=== PATIENT | female | born 1990 | race Caucasian/White ===

== ENCOUNTER 2018-08-16 13:06 | Emergency (ER) | payer BC ==
[2018-08-16] MEDS ORDERED: OXYCODONE-ACETAMINOPHEN 5-325 MG TABLET PO ONE (14:06)
[2018-08-16] MEDS ORDERED: LIDOCAINE 5% (700 MG) TRANSDERMAL ADH..PATCH TP ONE (14:06)
--- NOTE | 2018-08-16 14:20 | ER Document Report ---
HPI - HPI Patient complains to provider of: Right knee injury Time Seen by Provider: 08/16/18 13:50 Onset: Yesterday Onset/Duration: Persistent Quality of pain: Sharp Pain Level: 4 Context: P patient reports a history of sciatica and complains of a flareup of her low back pain that radiates to the left lower extremity. 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 States that she has had an MRI done in May of this year that did not find any acute problem. Patient states that typically her sciatica only goes down to the level of her knee but today it seems to be going down to her foot. Patient denies any new injury or fever. Patient states she was seen at an urgent care yesterday and given a prescription for Toradol and steroids but this is not helping her pain symptoms. Exacerbated by: Standing, Movement, Walking Relieved by: Denies Similar symptoms previously: Yes Recently seen / treated by doctor: Yes - ROS ROS below otherwise negative: Yes Systems Reviewed and Negative: Yes All other systems reviewed and negative - CONSTITUTIONAL Constitutional: DENIES: Fever, Chills - GASTROINTESTINAL Gastrointestinal: DENIES: Nausea - REPRODUCTIVE Reproductive: DENIES: : - MUSCULOSKELETAL Musculoskeletal: REPORTS: Extremity pain - radiation down left leg, Back Pain - DERM Skin Color: Normal Skin Problems: None Past Medical History - General Information source: Patient - Social History Smoking Status: Current Every Day Smoker Smoking Education Provided: Yes Frequency of alcohol use: Occasional Drug Abuse: None Occupation: EMS Family History: Reviewed & Not Pertinent Patient has suicidal ideation: No Patient has homicidal ideation: No Renal/ Medical History: Denies: Hx Peritoneal Dialysis Musculoskeletal Medical History: Denies Hx Arthritis, Reports Other - Sciatica Past Surgical History: Reports: Other - Cyst removal. Denies: Hx Hysterectomy - Immunizations Hx Diphtheria, Pertussis, Tetanus Vaccination: Yes Vertical Provider Document - CONSTITUTIONAL Agree With Documented VS: Yes Exam Limitations: No Limitations General Appearance: WD/WN, Mild Distress Notes: PHYSICAL EXAMINATION: GENERAL: Well-appearing, well-nourished and in no acute distress. HEAD: Atraumatic, normocephalic. EYES: sclera clear, anicteric, conjunctiva are normal. ENT: nares patent, Moist mucous membranes. NECK: Normal range of motion, supple no lymphadenopathy LUNGS: respirations unlabored HEART: Regular rate and rhythm without murmurs EXTREMITIES: Normal range of motion, no pitting or edema. No cyanosis. Gait normal, pt ambulates without difficulty BACK: Left lumbar paraspinal tenderness, left SI joint tenderness, no midline tenderness, no deformities or step-offs. No CVA tenderness. NEUROLOGICAL: Cranial nerves grossly intact. Normal speech, normal gait. No saddle anesthesia. 2+ bilateral patellar and Achilles reflexes, positive straight leg test on the left PSYCH: Normal mood, normal affect. SKIN: Warm, Dry, normal turgor, no rashes or lesions noted. - INFECTION CONTROL TRAVEL OUTSIDE OF THE [place] IN LAST 30 DAYS: No Course - Re-evaluation Re-evalutation: 08/16/18 14:17 The patient presents with low back pain without signs of spinal cord compression , cauda equina syndrome, infection, aneurysm, or other serious etiology. The patient is neurologically intact. Given the extremely risk of these diagnoses further testing and evaluation for these possibilities does not appear to be indicated at this time. Patient has been instructed to return if the symptoms worsen or change in any way. - Vital Signs Vital signs: Temp Pulse Resp BP Pulse Ox 98.4 F 84 20 135/74 H 100 08/16/18 13:08 08/16/18 13:08 08/16/18 13:08 08/16/18 13:08 08/16/18 13:08 Discharge - Discharge Clinical Impression: Sciatica Qualifiers: Laterality: left Qualified Code(s): M54.32 - Sciatica, left side Condition: Stable Disposition: HOME, SELF-CARE Instructions: Sciatica ([facility]) Additional Instructions: Return immediately for any new or worsening symptoms Followup with your primary care provider, call tomorrow to make a followup appointment LOW BACK PAIN: Three out of every four people will have an episode of disabling back pain during their lifetime. Most commonly the pain is due to straining of the muscles and ligaments in the low back. Usual treatment includes: (1) Rest on a firm surface. Avoid lying on your stomach. (2) Ice pack the painful area. After a few days, gentle heat may be used intermittently to relax the area, or ice packs can be continued. (3) Medication may be needed -- muscle relaxers and antiinflammatory medicines are commonly used. (4) As the back improves, exercises are prescribed to strengthen the back and abdominal muscles. Your doctor will advise you on the proper care for your back at each stage in your recovery. You may be better in a few days -- or healing may take several weeks. If new symptoms of a "herniated disc" (radiation of pain, numbness, or tingling down the back of the leg or weakness in the leg) occur, you should be re-examined. Further testing may be necessary. ORAL NARCOTIC MEDICATION: You have been given a prescription for pain control. This medication is a narcotic. It's best taken with food, as nausea can result if taken on an empty stomach. Don't operate machinery or drive within six hours of taking this medication. Do not combine this medicine with alcohol, or with any medication which can cause sedation (such as cold tablets or sleeping pills) unless you get permission from the physician. Narcotics tend to cause constipation. If possible, drink plenty of fluids and eat a diet high in fiber and fruits. Please be aware that prescription narcotics also have the potential for abuse. People become addicted to these medications because of the general sense of wellbeing that they induce. This feeling along with a significant reduction in tension, anxiety, and aggression provides a stimulating seductive quality to these drugs. Once your pain is under control, we encourage you to discard your unused narcotics. ICE PACKS: Apply ice packs frequently against the painful area. Many different schedules are recommended, such as "20 minutes on, 20 minutes off" or "one hour ice, two hours rest." If you need to work, you may need to go longer between ice treatments. You should plan to have the area ice packed AT LEAST one fourth of the time. The ice should be applied over the wrap, tape, or splint, or over a layer of cloth -- not directly against the skin. Some ice bags have a built-in cloth and can be put directly on the skin. FOLLOW-UP CARE: If you have been referred to a physician for follow-up care, call the physician s office for an appointment as you were instructed or within the next two days. If you experience worsening or a significant change in your symptoms, notify the physician immediately or return to the Emergency Department at any time for re-evaluation. Prescriptions: Oxycodone HCl/Acetaminophen [Percocet 5-325 mg Tablet] 1 tab PO ASDIR PRN #15 tablet PRN Reason: Forms: Smoking Cessation Education, Return to Work Referrals: MAR SALGADO PA-C [Primary Care Provider] - 08/17/18
[2018-08-16 14:55] VITALS: BP 115/74
== END 2018-08-16 14:53 | disposition home or self-care (01) ==
LOC: ER 13:06
DX: M54.32 Sciatica, left side (principal); M54.5 Low back pain; M79.605 Pain in left leg; X58.XXXA Exposure to other specified factors, initial encounter; F17.200 Nicotine dependence, unspecified, uncomplicated
CPT/HCPCS: 99283

== ENCOUNTER 2018-08-24 09:40 | Emergency (ER) | payer OTHER, BC ==
[2018-08-24 09:53] VITALS: BP 127/78
[2018-08-24] MEDS ORDERED: DIAZEPAM INJ 10 MG/2 ML DISP.SYRIN IM ONE (11:20)
[2018-08-24] MEDS ORDERED: KETOROLAC TROMETHAMINE 60 MG/2 ML SDV IM ONE (11:20)
--- NOTE | 2018-08-24 11:32 | ER Document Report ---
HPI - HPI Time Seen by Provider: 08/24/18 10:45 Onset: Last week Pain Level: 5 Similar symptoms previously: Yes Recently seen / treated by doctor: Yes Notes: Patient is an otherwise healthy 27-year-old female who presents with chief complaints of low back pain and left leg pain. Patient has been seen here and at her primary care provider multiple times for this. Patient has already tried taking the following medications without relief, Mobic, Flexeril, Toradol , prednisone, Percocet and gabapentin. These medications have been prescribed either from primary care or ED providers. She reports that the pain is worsening and she now has pain to the left lumbar paraspinous area with radiation down the left buttock down to her posterior knee. She also has numbness and tingling from her left foot up to her left thigh. She denies any bowel incontinence but does report that she has had a reduced urge to urinate. She denies any fever. - REPRODUCTIVE Reproductive: DENIES: : Past Medical History - General Information source: Patient - Social History Smoking Status: Current Every Day Smoker Frequency of alcohol use: None Drug Abuse: None Family History: Reviewed & Not Pertinent - Past Medical History Cardiac Medical History: Denies: Hx Coronary Artery Disease, Hx Heart Attack, Hx Hypertension Pulmonary Medical History: Reports: Hx Asthma - as a child Denies: Hx Bronchitis, Hx COPD, Hx Pneumonia Neurological Medical History: Denies: Hx Cerebrovascular Accident, Hx Seizures Renal/ Medical History: Denies: Hx Peritoneal Dialysis Musculoskeletal Medical History: Denies Hx Arthritis Past Surgical History: Reports: Hx Section, Hx Tubal Ligation, Other - Cyst removal. Denies: Hx Hysterectomy - Immunizations Hx Diphtheria, Pertussis, Tetanus Vaccination: Yes Vertical Provider Document - CONSTITUTIONAL Notes: PHYSICAL EXAMINATION: GENERAL: Well-appearing, well-nourished and in no acute distress. HEAD: Atraumatic, normocephalic. EYES: Pupils equal round and reactive to light, extraocular movements intact, conjunctiva are normal. ENT: Nares patent, oropharynx clear without exudates. Moist mucous membranes. NECK: Normal range of motion, supple without lymphadenopathy LUNGS: Breath sounds clear to auscultation bilaterally and equal. No wheezes rales or rhonchi. HEART: Regular rate and rhythm without murmurs ABDOMEN: Soft, nontender, nondistended abdomen. No guarding, no rebound. No masses appreciated. Female : No CVA tenderness. Musculoskeletal: Normal range of motion, no pitting or edema. No cyanosis. Positive straight leg raises at approximately 30 degrees. Tenderness to palpation to left lumbar paraspinous muscles. NEUROLOGICAL: Cranial nerves grossly intact. Normal speech. Normal sensory, motor exams. Altered sensation to posterior left leg from the foot up to the thigh. PSYCH: Normal mood, normal affect. SKIN: Warm, Dry, normal turgor, no rashes or lesions noted. - INFECTION CONTROL TRAVEL OUTSIDE OF THE [place] IN LAST 30 DAYS: No Course - Re-evaluation Re-evalutation: Urinalysis is unremarkable has no indication of infection. MRI of the lumbar spine order was placed as patient does have progressive neurological symptoms concerning for cord compression. 08/24/18 14:59 Patient reports minimal improvement of pain after administration of IM toradol and IM valium. MRI of the lumber spine reveals a sizeable inferiorly extending disc extrusion at L5-S1 with impingement on the left S1 nerve root. 08/24/18 15:10 Findings were discussed with the patient, I will discharge patient home with a prescription for Valium. She already has appropriate pain medications at home. She will follow-up with her Workmen's Comp. doctor Sunday morning so that the she can get an appropriate referral to neurosurgery. Patient is agreeable to this plan of care. - Vital Signs Vital signs: Temp Pulse Resp BP Pulse Ox 98.4 F 89 16 127/78 H 98 08/24/18 09:50 08/24/18 09:50 08/24/18 09:50 08/24/18 09:50 08/24/18 09:50 Discharge - Discharge Clinical Impression: Extrusion of intervertebral disc Back pain Qualifiers: Back pain location: low back pain Chronicity: acute Back pain laterality: unspecified Sciatica presence: with sciatica Sciatica laterality: sciatica of left side Qualified Code(s): M54.42 - Lumbago with sciatica, left side Condition: Stable Disposition: HOME, SELF-CARE Additional Instructions: I have enclosed a copy of your MRI report. Please do not return to work until cleared by the neurosurgeon. Please call your human resources department first thing Sunday morning to get your Workmen's Comp. appointments expedited. It is imperative that you are seen by a neurosurgeon due to the findings on your MRI. You have a disc extrusion at L5-S1 with impingement on the left S1 nerve root. This is what is causing your pain. Continue to take medications as prescribed by your primary provider, stop taking the Flexeril and start taking Valium as prescribed. You are also given a shot of IM Decadron while in the emergency department today, this will last for 3 days. I have also attached the number of a house painter, Dr. Sy who may be able to help with some of your symptoms. Return to the emergency department immediately if you develop worsening symptoms, bowel incontinence, you are unable to urinate or you have worsening numbness or tingling to your legs. Prescriptions: Diazepam [Valium 5 mg Tablet] 5 mg PO QIDP PRN #20 tablet PRN Reason: Muscle Spasms Forms: Return to Work Referrals: MAR SALGADO PA-C [Primary Care Provider] - Follow up as needed JENNIFER SY MD [ACTIVE STAFF] - Follow up as needed
[2018-08-24 12:04] LABS: APPEARANCE,URINE SLIGHTLY-CLOUDY; BILIRUBIN,URINE NEGATIVE (NEGATIVE); COLOR,URINE YELLOW; GLUCOSE, URINE NEGATIVE (NEGATIVE); KETONES,URINE NEGATIVE (NEGATIVE); LEUKOCYTE ESTERASE,URINE NEGATIVE (NEGATIVE); NITRITE,URINE NEGATIVE (NEGATIVE); PROTEIN,URINE NEGATIVE (NEGATIVE); URINE SPECIFIC GRAVITY 1.006; UROBILINOGEN,URINE NEGATIVE mg/dL (<2.0)
--- NOTE | 2018-08-24 13:58 | RADIOLOGY REPORT (SQ) ---
EXAM DESCRIPTION: MRI LUMBAR SPINE WITHOUT COMPLETED DATE/TIME: 08/24/2018 1:49 pm REASON FOR STUDY: Back pain, numbness in LLE, decreased urge to urin COMPARISON: None. TECHNIQUE: Sagittal and Axial imaging includes T1, T2, STIR and gradient echo sequences. Coronal T2/ HASTE imaging. LIMITATIONS: None. FINDINGS: VISUALIZED UPPER ABDOMEN: Limited evaluation. No acute or suspicious findings suggested. SEGMENTATION: No transitional anatomy. The lowest well-developed disc space is labeled L5-S1. ALIGNMENT: Slight scoliosis. VERTEBRAE: Intact. BONE MARROW: Mild endplate edema at L5-S1. DISC SIGNAL: Diminished disc signal at L4-5 and L5-S1. POSTERIOR ELEMENTS: Generally intact. No pars defect evident. HARDWARE: None in the spine. CORD AND CONUS: Normal in size and signal intensity. Conus at the appropriate level. SOFT TISSUES: No aortic aneurysm seen. No bulky retroperitoneal adenopathy or mass. No paraspinal mas s or fluid. L1-L2: No significant spinal stenosis or exit foraminal stenosis. L2-L3: No significant spinal stenosis or exit foraminal stenosis. L3-L4: No significant spinal stenosis or exit foraminal stenosis. L4-L5: Minimal central protrusion slightly indenting the ventral thecal sac without mass effect on th e nerve roots. L5-S1: Broad central to left paracentral focal disc hernia with an inferiorly extending portion exert ing marked mass effect on the proximal left S1 nerve root. Mild left foraminal narrowing. LOWER THORACIC: Incompletely imaged. No stenosis seen. SACRUM: Visualized upper sacrum intact. OTHER: No other significant findings. IMPRESSION: 1. Sizable inferiorly extending disc extrusion at L5-S1. There is impingement on the le ft S1 nerve root. TECHNICAL DOCUMENTATION: JOB ID: [id number] [employer]- All Rights Reserved Reading location - IP/workstation name: [email or web address]
[2018-08-24] MEDS ORDERED: DEXAMETHASONE SOD PHOS INJ 10 MG/1 ML VIAL IM ONE (15:09)
== END 2018-08-24 15:43 | disposition home or self-care (01) ==
LOC: ER 09:40
DX: M51.27 Other intervertebral disc displacement, lumbosacral region (principal); M54.42 Lumbago with sciatica, left side; M79.605 Pain in left leg; Z79.899 Other long term (current) drug therapy; M25.562 Pain in left knee; M79.672 Pain in left foot; M25.552 Pain in left hip; F17.200 Nicotine dependence, unspecified, uncomplicated; J45.909 Unspecified asthma, uncomplicated
CPT/HCPCS: 99284; 96372; 81025; 81001; 72148; J3360; J1885; J1100

== ENCOUNTER 2019-11-15 13:55 | Emergency (ER) | payer BC ==
[2019-11-15] MEDS ORDERED: ONDANSETRON HCL INJ/PF 4 MG/2 ML SDV IV ONE (14:16)
[2019-11-15] MEDS ORDERED: KETOROLAC TROMETHAMINE INJ/PF 30 MG/1 ML SDV IV ONE (14:16)
--- NOTE | 2019-11-15 14:17 | ER Document Report ---
ED Medical Screen (RME) - General Chief Complaint: Flank Pain Stated Complaint: LOWER ABDOMINAL/BACK/BLADDER PAIN Time Seen by Provider: 11/15/19 14:13 Primary Care Provider: MAR SALGADO PA-C [Primary Care Provider] - Follow up as needed Notes: HPI: 29-year-old female who is otherwise healthy but does have a history of 1 kidney stone previously 3 or 4 years ago which she was able to pass presenting to the emergency department complaining of left flank pain with nausea vomiting, patient had some frequency of urination last night but did not have the flank pain which began this morning. States pain seems to radiate from the left back down into the left lower quadrant region. Pain does not change with position or movement I have greeted and performed a rapid initial assessment of this patient. A comprehensive ED assessment and evaluation of the patient, analysis of test results and completion of the medical decision making process will be conducted by additional ED providers PHYSICAL EXAMINATION: GENERAL: Well-appearing, well-nourished and in moderate acute distress. HEAD: Atraumatic, normocephalic. EYES: sclera anicteric, conjunctiva are normal. ENT: Moist mucous membranes. NECK: Normal range of motion LUNGS: Normal work of breathing, clear to auscultation HEART: 2+ radial pulses bilaterally, regular rate and rhythm ABD: limited by positioning for exam in triage. Mild left CVA tenderness, mild left flank pain on palpation EXTREMITIES: no pitting or edema. No cyanosis. NEUROLOGICAL: No focal neurological deficits. Moves all extremities spontaneously and on command. PSYCH: Normal mood, normal affect. SKIN: Warm, Dry, normal turgor, no rashes or lesions noted. TRAVEL OUTSIDE OF THE [place] IN LAST 30 DAYS: No - Related Data Allergies/Adverse Reactions: Sulfa (Sulfonamide Antibiotics) Allergy (Verified 11/15/19 14:12) Home Medications: control pill Past Medical History - Social History Chew tobacco use (# tins/day): No Frequency of alcohol use: None Drug Abuse: None - Past Medical History Cardiac Medical History: Denies: Hx Coronary Artery Disease, Hx Heart Attack, Hx Hypertension Pulmonary Medical History: Reports: Hx Asthma - as a child Denies: Hx Bronchitis, Hx COPD, Hx Pneumonia Neurological Medical History: Denies: Hx Cerebrovascular Accident, Hx Seizures Renal/ Medical History: Denies: Hx Peritoneal Dialysis Musculoskeltal Medical History: Denies Hx Arthritis Past Surgical History: Reports: Hx Section, Hx Tubal Ligation, Other - Cyst removal. Denies: Hx Hysterectomy - Immunizations Hx Diphtheria, Pertussis, Tetanus Vaccination: Yes Physical Exam - Vital signs Vitals: Temp Pulse Resp BP Pulse Ox 97.9 F 72 20 127/77 H 100 11/15/19 14:11 11/15/19 14:11 11/15/19 14:11 11/15/19 14:11 11/15/19 14:11 Course - Vital Signs Vital signs: Temp Pulse Resp BP Pulse Ox 97.9 F 72 20 127/77 H 100 11/15/19 14:11 11/15/19 14:11 11/15/19 14:11 11/15/19 14:11 11/15/19 14:11 Doctor's Discharge - Discharge Referrals: MAR SALGADO PA-C [Primary Care Provider] - Follow up as needed
[2019-11-15 15:06] LABS: APPEARANCE,URINE CLOUDY; BILIRUBIN,URINE NEGATIVE (NEGATIVE); COLOR,URINE YELLOW; GLUCOSE, URINE NEGATIVE (NEGATIVE); KETONES,URINE NEGATIVE (NEGATIVE); LEUKOCYTE ESTERASE,URINE NEGATIVE (NEGATIVE); NITRITE,URINE NEGATIVE (NEGATIVE); PROTEIN,URINE 30 mg/dL (NEGATIVE); URINE SPECIFIC GRAVITY 1.026; UROBILINOGEN,URINE NEGATIVE mg/dL (<2.0)
[2019-11-15 15:06] LABS: ABSOLUTE EOSINOPHILS # (AUTO) 0.2 10^3/uL (0.0-0.6); ABSOLUTE LYMPHOCYTES (AUTO) 1.1 10^3/uL (0.5-4.7); ABSOLUTE MONOCYTES (AUTO) 0.4 10^3/uL (0.1-1.4); ABSOLUTE NEUT (AUTO) 3.5 10^3/uL (1.7-8.2); BASOPHILS % (AUTO) 0.3 % (0-2); EOSINOPHILS % (AUTO) 3.1 % (0-6); HEMATOCRIT 41.8 % (36.0-47.0); HEMOGLOBIN 14.7 g/dL (12.0-15.5); LYMPHOCYTES % (AUTO) 20.8 % (13-45); MEAN CORPUSCULAR HEMOGLOBIN 29.9 pg (27.0-33.4); MEAN CORPUSCULAR HGB CONC 35.1 g/dL (32.0-36.0); MEAN CORPUSCULAR VOLUME 85 fl (80-97); MONOCYTES % (AUTO) 8.2 % (3-13); PLATELET COUNT 245 10^3/uL (150-450); RED BLOOD COUNT 4.91 10^6/uL (3.72-5.28); RED CELL DISTRIBUTION WIDTH 13.3 % (11.5-14.0); SEGMENTED NEUTROPHILS % (AUTO) 67.6 % (42-78); TOTAL CELLS COUNTED % (AUTO) 100 %; WHITE BLOOD COUNT 5.2 10^3/uL (4.0-10.5)
[2019-11-15 15:24] LABS: ANION GAP 7 (5-19); BLOOD UREA NITROGEN 9 mg/dL (7-20); CALCIUM 9.2 mg/dL (8.4-10.2); CARBON DIOXIDE 23 mmol/L (22-30); CHLORIDE 108 mmol/L (98-107); GLUCOSE 89 mg/dL (75-110); POTASSIUM 4.3 mmol/L (3.6-5.0)
--- NOTE | 2019-11-15 15:30 | RADIOLOGY REPORT (SQ) ---
EXAM DESCRIPTION: CT ABD/PELVIS NO ORAL OR IV COMPLETED DATE/TIME: 11/15/2019 2:07 pm REASON FOR STUDY: left flank pain kidney stone susp COMPARISON: 08/23/2014. TECHNIQUE: CT scan of the abdomen and pelvis performed without intravenous or oral contrast. Images reviewed with lung, soft tissue, and bone windows. Reconstructed coronal and sagittal MPR images revi ewed. All images stored on PACS. All CT scanners at this facility use dose modulation, iterative reconstruction, and/or weight based d osing when appropriate to reduce radiation dose to as low as reasonably achievable (ALARA). [facility]: Dose Right [facility]: CareDose [facility]: Dose Right [facility]: Teradose 4D [facility]: Smart IQ Engines RADIATION DOSE: CT Rad equipment meets quality standard of care and radiation dose reduction techniq ues were employed. CTDIvol: 7.7 mGy. DLP: 443 mGy-cm.mGy. LIMITATIONS: None. FINDINGS: LOWER CHEST: No significant findings. No nodules or infiltrates. NON-CONTRASTED LIVER, SPLEEN, ADRENALS: Evaluation limited by lack of IV contrast. No identified sign ificant masses. PANCREAS: No masses. No peripancreatic inflammatory changes. GALLBLADDER: No identified stones by CT criteria. No inflammatory changes to suggest cholecystitis. RIGHT KIDNEY AND URETER: No suspicious masses. Assessment limited by lack of IV contrast. A few pun ctate nonobstructing right renal calculi. No hydronephrosis or hydroureter. LEFT KIDNEY AND URETER: No suspicious masses. Assessment limited by lack of IV contrast. There are a few punctate nonobstructing renal calculi. There is a 6 mm distal right ureteral calculus at the u reterovesical junction, with moderate right hydronephrosis and hydroureter. AORTA AND RETROPERITONEUM: No aneurysm. No retroperitoneal masses or adenopathy. BOWEL AND PERITONEAL CAVITY: No obvious masses or inflammatory changes. No free fluid. APPENDIX: Normal. PELVIS, BLADDER, AND ABDOMINAL WALL:Uterus and ovaries have normal size. No adnexal mass. Urinary b ladder is decompressed. No abdominal wall mass or hernia. BONES: No significant findings. OTHER: No other significant finding. IMPRESSION: 1. Obstructing 6 mm distal left ureteral calculus at the ureterovesical junction. Resulting moderate left hydronephrosis and hydroureter. 2. Additional punctate bilateral nonobstructing renal calculi. COMMENT: Quality ID # [id number]: Final reports with documentation of one or more dose reduction techniques (e.g., Automated exposure control, adjustment of the mA and/or kV according to patient size, use of iterative reconstruction technique) TECHNICAL DOCUMENTATION: JOB ID: [id number] [employer]- All Rights Reserved Reading location - IP/workstation name: [email or web address]
[2019-11-15] MEDS ORDERED: NORMAL SALINE 1000 ML 1,000 ML IV ONE (16:09)
[2019-11-15] MEDS ORDERED: TAMSULOSIN HCL 0.4 MG CAP.SR.24H PO ONE (16:09)
--- NOTE | 2019-11-15 16:27 | ER Document Report ---
ED GI/ - General Chief Complaint: Flank Pain Stated Complaint: LOWER ABDOMINAL/BACK/BLADDER PAIN Time Seen by Provider: 11/15/19 14:13 Primary Care Provider: LUTHER NAPOLES MD [NO LOCAL MD] - Follow up as needed Mode of Arrival: Ambulatory Information source: Patient Notes: BERNARDO HPI: 29-year-old female who is otherwise healthy but does have a history of 1 kidney stone previously 3 or 4 years ago which she was able to pass presenting to the emergency department complaining of left flank pain with nausea vomiting, patient had some frequency of urination last night but did not have the flank pain which began this morning. States pain seems to radiate from the left back down into the left lower quadrant region. Pain does not change with position or movement TRAVEL OUTSIDE OF THE [place] IN LAST 30 DAYS: No - Related Data Allergies/Adverse Reactions: Sulfa (Sulfonamide Antibiotics) Allergy (Verified 11/15/19 14:12) Home Medications: control pill Past Medical History - General Information source: Patient - Social History Smoking Status: Never Smoker Chew tobacco use (# tins/day): No Frequency of alcohol use: None Drug Abuse: None Family History: Reviewed & Not Pertinent Patient has suicidal ideation: No Patient has homicidal ideation: No - Past Medical History Cardiac Medical History: Denies: Hx Coronary Artery Disease, Hx Heart Attack, Hx Hypertension Pulmonary Medical History: Reports: Hx Asthma - as a child Denies: Hx Bronchitis, Hx COPD, Hx Pneumonia Neurological Medical History: Denies: Hx Cerebrovascular Accident, Hx Seizures Renal/ Medical History: Reports: Hx Kidney Stones. Denies: Hx Peritoneal Dialysis Musculoskeletal Medical History: Denies Hx Arthritis Past Surgical History: Reports: Hx Section, Hx Tubal Ligation, Other - Cyst removal. Denies: Hx Hysterectomy - Immunizations Hx Diphtheria, Pertussis, Tetanus Vaccination: Yes Review of Systems - Review of Systems Constitutional: No symptoms reported EENT: No symptoms reported Cardiovascular: No symptoms reported Respiratory: No symptoms reported Gastrointestinal: No symptoms reported Genitourinary: Flank pain Female Genitourinary: No symptoms reported Musculoskeletal: No symptoms reported Skin: No symptoms reported Hematologic/Lymphatic: No symptoms reported Neurological/Psychological: No symptoms reported Physical Exam - Vital signs Vitals: Temp Pulse Resp BP Pulse Ox 97.9 F 72 20 127/77 H 100 11/15/19 14:11 11/15/19 14:11 11/15/19 14:11 11/15/19 14:11 11/15/19 14:11 - Notes Notes: PHYSICAL EXAMINATION: GENERAL: Well-appearing, well-nourished and in no acute distress. HEAD: Atraumatic, normocephalic. EYES: Pupils equal round and reactive to light, extraocular movements intact, conjunctiva are normal. ENT: Nares patent, oropharynx clear without exudates. Moist mucous membranes. NECK: Normal range of motion, supple without lymphadenopathy LUNGS: Breath sounds clear to auscultation bilaterally and equal. No wheezes rales or rhonchi. HEART: Regular rate and rhythm without murmurs ABDOMEN: Soft, nontender, nondistended abdomen. No guarding, no rebound. No masses appreciated. Female : No CVA tenderness Musculoskeletal: Normal range of motion, no pitting or edema. No cyanosis. NEUROLOGICAL: Cranial nerves grossly intact. Normal speech, normal gait. Normal sensory, motor exams PSYCH: Normal mood, normal affect. SKIN: Warm, Dry, normal turgor, no rashes or lesions noted. Course - Re-evaluation Re-evalutation: Laboratory 11/15/19 11/15/19 11/15/19 14:25 14:53 14:53 WBC 5.2 RBC 4.91 Hgb 14.7 Hct 41.8 MCV 85 MCH 29.9 MCHC 35.1 RDW 13.3 Plt Count 245 Lymph % (Auto) 20.8 Upson % (Auto) 8.2 Eos % (Auto) 3.1 Baso % (Auto) 0.3 Absolute Neuts (auto) 3.5 Absolute Lymphs (auto) 1.1 Absolute Monos (auto) 0.4 Absolute Eos (auto) 0.2 Absolute Basos (auto) 0.0 Seg Neutrophils % 67.6 Sodium 138.3 Potassium 4.3 Chloride 108 H Carbon Dioxide 23 Anion Gap 7 BUN 9 Creatinine 0.82 Est GFR ( Amer) > 60 Est GFR (MDRD) Non-Af > 60 Glucose 89 Calcium 9.2 Serum HCG, Qual Urine Color YELLOW Urine Appearance CLOUDY Urine pH 5.0 Ur Specific Hamlin 1.026 Urine Protein 30 H Urine Glucose (UA) NEGATIVE Urine Ketones NEGATIVE Urine Blood LARGE H Urine Nitrite NEGATIVE Urine Bilirubin NEGATIVE Urine Urobilinogen NEGATIVE Ur Leukocyte Esterase NEGATIVE Urine WBC (Auto) 2 Urine RBC (Auto) >182 Urine Bacteria (Auto) TRACE Squamous Epi Cells Auto 9 Urine Mucus (Auto) MANY Urine Ascorbic Acid NEGATIVE 11/15/19 14:53 WBC RBC Hgb Hct MCV MCH MCHC RDW Plt Count Lymph % (Auto) Upson % (Auto) Eos % (Auto) Baso % (Auto) Absolute Neuts (auto) Absolute Lymphs (auto) Absolute Monos (auto) Absolute Eos (auto) Absolute Basos (auto) Seg Neutrophils % Sodium Potassium Chloride Carbon Dioxide Anion Gap BUN Creatinine Est GFR ( Amer) Est GFR (MDRD) Non-Af Glucose Calcium Serum HCG, Qual NEGATIVE Urine Color Urine Appearance Urine pH Ur Specific Hamlin Urine Protein Urine Glucose (UA) Urine Ketones Urine Blood Urine Nitrite Urine Bilirubin Urine Urobilinogen Ur Leukocyte Esterase Urine WBC (Auto) Urine RBC (Auto) Urine Bacteria (Auto) Squamous Epi Cells Auto Urine Mucus (Auto) Urine Ascorbic Acid Abdomen/Pelvis CT 11/15/19 14:15 IMPRESSION: 1. Obstructing 6 mm distal left ureteral calculus at the ureterovesical junction. Resulting moderate left hydronephrosis and hydroureter. 2. Additional punctate bilateral nonobstructing renal calculi. Laboratory studies and abdomen pelvis CT results as above. Patient has a 6 mm stone at the distal left ureteral vesicular junction. There is moderate hydronephrosis and hydroureter. Patient appears well, nontoxic, she states she feels much better. Her urine does not appear to be infected. She has no elevated white blood count. Patient will be started on Flomax, Offerle (per her request do not take Percocet) ibuprofen, and Zofran. She will be referred to urology. ED return precautions discussed, patient verbalized understanding and agreement with same. - Vital Signs Vital signs: Temp Pulse Resp BP Pulse Ox 97.6 F 65 16 118/56 L 99 11/15/19 17:13 11/15/19 17:13 11/15/19 17:13 11/15/19 17:13 11/15/19 17:13 - Laboratory Result Diagrams: 11/15/19 14:53 11/15/19 14:53 Laboratory results interpreted by me: 11/15/19 11/15/19 14:25 14:53 Chloride 108 H Urine Protein 30 H Urine Blood LARGE H Discharge - Discharge Clinical Impression: Kidney stone Condition: Stable Disposition: HOME, SELF-CARE Additional Instructions: Your symptoms should improve over the course of the next one week. If you continue to have pain for greater than one week or your pain is not controlled with the pain medications that you have been sent home with you need to return to the emergency department. Please also return if you develop fever, persistent vomiting, or any other symptoms that are concerning to you. You should take ibuprofen 600 mg every 6 hours and use the hydrocodone as prescribed only for pain not controlled by ibuprofen. You are also been sent home with a medication called Flomax to help pass the stone. You've been given Zofran to assist with nausea. Please follow-up with urology in the next 2-3 days. Prescriptions: Tamsulosin HCl [Flomax] 0.4 mg PO DAILY #7 cap.er.24h Hydrocodone/Acetaminophen [Offerle 5-325 mg Tablet] 1 tab PO Q4H #12 tablet Ondansetron [Zofran Odt 4 mg Tablet] 1 - 2 tab PO Q4H PRN #15 tab.rapdis PRN Reason: For Nausea/Vomiting Forms: Return to Work Referrals: LUTHER NAPOLES MD [NO LOCAL MD] - Follow up as needed
[2019-11-15 17:14] VITALS: BP 118/56
== END 2019-11-15 17:17 | disposition home or self-care (01) ==
LOC: ER 13:55
DX: N20.0 Calculus of kidney (principal); R10.30 Lower abdominal pain, unspecified; R11.2 Nausea with vomiting, unspecified; Z88.2 Allergy status to sulfonamides; Z98.51 Tubal ligation status
CPT/HCPCS: 99284; 96361; 96374; 96375; 36415; 84703; 85025; 80048; 81001; 74176; J1885; J2405; J7030

== ENCOUNTER 2020-05-17 13:32 | Emergency (ER) | payer BC ==
--- NOTE | 2020-05-17 13:58 | ER Document Report ---
ED Medical Screen (RME) - General Chief Complaint: Chest Pain Stated Complaint: PALPITATIONS Time Seen by Provider: 05/17/20 13:45 Primary Care Provider: MAR SALGADO PA-C [Primary Care Provider] - Follow up as needed Mode of Arrival: Ambulatory Information source: Patient Notes: 29-year-old female presented to ED for complaint of palpitations chest pain lightheadedness. She states on Sunday she was very lightheaded she checked her pulse on her watch and it was 50 she got up moves around it went up to the 60s then with history she sat down and went back to the 50s. 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 She states she has had some chest pain and lightheadedness. She states her normal pulse is between 70 and 75 and this is not at all her normal. She is a former smoker now she uses vape she drinks alcohol occasionally which is about once a month and does not use any illicit drugs. She does have a past medical history of kidney stones and asthma. She has never had any lightheadedness or chest pain before. I have greeted and performed a rapid initial assessment of this patient. A comprehensive ED assessment and evaluation of the patient, analysis of test results and completion of medical decision making process will be conducted by an additional ED providers. TRAVEL OUTSIDE OF THE [place] IN LAST 30 DAYS: No - Related Data Allergies/Adverse Reactions: Sulfa (Sulfonamide Antibiotics) Allergy (Verified 11/15/19 14:12) Past Medical History - Past Medical History Cardiac Medical History: Denies: Hx Coronary Artery Disease, Hx Heart Attack, Hx Hypertension Pulmonary Medical History: Reports: Hx Asthma - as a child Denies: Hx Bronchitis, Hx COPD, Hx Pneumonia Neurological Medical History: Denies: Hx Cerebrovascular Accident, Hx Seizures Renal/ Medical History: Reports: Hx Kidney Stones. Denies: Hx Peritoneal Dialysis Musculoskeltal Medical History: Denies Hx Arthritis Past Surgical History: Reports: Hx Section, Hx Tubal Ligation, Other - Cyst removal. Denies: Hx Hysterectomy - Immunizations Hx Diphtheria, Pertussis, Tetanus Vaccination: Yes Physical Exam - Vital signs Vitals: Temp Pulse Resp BP Pulse Ox 98 F 77 18 128/78 H 100 05/17/20 13:54 05/17/20 13:54 05/17/20 13:54 05/17/20 13:54 05/17/20 13:54 Course - Vital Signs Vital signs: Temp Pulse Resp BP Pulse Ox 98 F 77 18 128/78 H 100 05/17/20 13:54 05/17/20 13:54 05/17/20 13:54 05/17/20 13:54 05/17/20 13:54 Doctor's Discharge - Discharge Referrals: MAR SALGADO PA-C [Primary Care Provider] - Follow up as needed
[2020-05-17 14:24] LABS: ABSOLUTE EOSINOPHILS # (AUTO) 0.1 10^3/uL (0.0-0.6); ABSOLUTE LYMPHOCYTES (AUTO) 1.2 10^3/uL (0.5-4.7); ABSOLUTE MONOCYTES (AUTO) 0.4 10^3/uL (0.1-1.4); ABSOLUTE NEUT (AUTO) 3.3 10^3/uL (1.7-8.2); BASOPHILS % (AUTO) 0.6 % (0-2); EOSINOPHILS % (AUTO) 2.8 % (0-6); HEMATOCRIT 39.8 % (36.0-47.0); HEMOGLOBIN 14.2 g/dL (12.0-15.5); MEAN CORPUSCULAR HEMOGLOBIN 29.3 pg (27.0-33.4); MEAN CORPUSCULAR HGB CONC 35.7 g/dL (32.0-36.0); MEAN CORPUSCULAR VOLUME 82 fl (80-97); MONOCYTES % (AUTO) 8.6 % (3-13); PLATELET COUNT 243 10^3/uL (150-450); RED BLOOD COUNT 4.85 10^6/uL (3.72-5.28); RED CELL DISTRIBUTION WIDTH 12.9 % (11.5-14.0); TOTAL CELLS COUNTED % (AUTO) 100 %; WHITE BLOOD COUNT 5.2 10^3/uL (4.0-10.5)
--- NOTE | 2020-05-17 14:27 | RADIOLOGY REPORT (SQ) ---
EXAM DESCRIPTION: CHEST 2 VIEWS IMAGES COMPLETED DATE/TIME: 05/17/2020 2:19 pm REASON FOR STUDY: chest pain COMPARISON: None. EXAM PARAMETERS: NUMBER OF VIEWS: two views TECHNIQUE: Digital Frontal and Lateral radiographic views of the chest acquired. RADIATION DOSE: NA LIMITATIONS: none FINDINGS: LUNGS AND PLEURA: No opacities, masses or pneumothorax. No pleural effusion. MEDIASTINUM AND HILAR STRUCTURES: No masses or contour abnormalities. HEART AND VASCULAR STRUCTURES: Heart normal size. No evidence for failure. BONES: No acute findings. HARDWARE: None in the chest. OTHER: No other significant finding. IMPRESSION: NO ACUTE RADIOGRAPHIC FINDING IN THE CHEST. TECHNICAL DOCUMENTATION: JOB ID: [id number] 2010 [employer]- All Rights Reserved Reading location - IP/workstation name: [email or web address]
[2020-05-17 14:41] LABS: ALBUMIN 4.3 g/dL (3.5-5.0); ALKALINE PHOSPHATASE 71 U/L (38-126); ANION GAP 8 (5-19); ASPARTATE AMINO TRANSFERASE 23 U/L (14-36); BILIRUBIN,DIRECT 0.2 mg/dL (0.0-0.4); BILIRUBIN,TOTAL 0.6 mg/dL (0.2-1.3); BLOOD UREA NITROGEN 7 mg/dL (7-20); CALCIUM 9.4 mg/dL (8.4-10.2); CARBON DIOXIDE 24 mmol/L (22-30); CHLORIDE 107 mmol/L (98-107); CREATINE KINASE 76 U/L (30-135); GLUCOSE 96 mg/dL (75-110); POTASSIUM 3.7 mmol/L (3.6-5.0)
--- NOTE | 2020-05-17 14:41 | ER Document Report ---
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 This is per her apple watch. She works as EMS provider and put her self on the monitor during 1 of the dizzy spells, which tend to occur when sitting down or standing up, and her lowest heart rate was 45. She did feel some irregularity and some irregular chest pressure which is now resolved. She got slightly winded while chasing her dog yesterday and noted to be tachycardia to 120 after that and then sat down and her heart rate merely dropped to 60. She drinks excessive caffeine given her profession and vapes but is not on any other drugs and has no major family history of cardiac issues. TRAVEL OUTSIDE OF THE [place] IN LAST 30 DAYS: No - Related Data Allergies/Adverse Reactions: Sulfa (Sulfonamide Antibiotics) Allergy (Verified 11/15/19 14:12) Past Medical History - General Information source: Patient - Social History Smoking Status: Current Every Day Smoker Smoking Education Provided: Yes - The patient ED visit today was directly related to their abuse of tobacco. Family History: Reviewed & Not Pertinent - Past Medical History Cardiac Medical History: Denies: Hx Coronary Artery Disease, Hx Heart Attack, Hx Hypertension Pulmonary Medical History: Reports: Hx Asthma - as a child Denies: Hx Bronchitis, Hx COPD, Hx Pneumonia Neurological Medical History: Denies: Hx Cerebrovascular Accident, Hx Seizures Renal/ Medical History: Reports: Hx Kidney Stones. Denies: Hx Peritoneal Dialysis Musculoskeletal Medical History: Denies Hx Arthritis Past Surgical History: Reports: Hx Section, Hx Tubal Ligation, Other - Cyst removal. Denies: Hx Hysterectomy - Immunizations Hx Diphtheria, Pertussis, Tetanus Vaccination: Yes Review of Systems - Review of Systems Notes: REVIEW OF SYSTEMS GEN: Denies fever, chills, weight loss ENT: Denies sore throat, nasal discharge, ear pain EYES: Denies blurry vision, eye pain, discharge CV: Present chest pressure RESP: Denies cough, shortness of breath, wheezing GI: Denies abdominal pain, nausea, vomiting, diarrhea MSK: Denies joint pain/swelling, edema, SKIN: Denies rash, skin lesions LYMPH: Denies swollen glands/lymph nodes NEURO: Yes, no focal findings PSYCH: Denies depression, suicidal or homicidal ideation PHYSICAL EXAMINATION General: No acute distress, well-nourished Head: Atraumatic, normocephalic ENT: Mouth normal, oropharynx moist, no exudates or tonsillar enlargement Eyes: Conjunctiva normal, pupils equal, lids normal Neck: No JVD, supple, no guarding CVS: Normal rate, regular rhythm, no murmurs Resp: No resp distress, equal and normal breath sounds bilaterally GI: Nondistended, soft, no tenderness to palpation, no rebound or guarding Ext: No deformities, no edema, normal range of motion in upper and lower ext Back: No CVA or midline TTP Skin: No rash, warm Lymphatic: No lymphadeopathy noted Neuro: Awake, alert. Face symmetric. GCS 15. Physical Exam - Vital signs Vitals: Temp Pulse Resp BP Pulse Ox 98 F 77 18 128/78 H 100 05/17/20 13:54 05/17/20 13:54 05/17/20 13:54 05/17/20 13:54 05/17/20 13:54 Course - Re-evaluation Re-evalutation: 05/17/20 14:40 Min chest pressure and palpitations in a young healthy female. She had a solitary PAC with a refractory period on the monitor which may account for the irregularity but her twelve-lead is normal and her labs are normal. Discussed caffeine cessation. Highly doubt ACS or other serious cardiac illness but will need to be referred to cardiology for outpatient work-up. Prefers [place] so given [facility] Discussed smoking cessation. Discussed caffeine avoidance I have discussed with the patient there likely diagnosis, aftercare plan, follow-up plans and my usual and customary return precautions. They verbalized understanding of this. - Vital Signs Vital signs: Temp Pulse Resp BP Pulse Ox 98 F 77 18 122/74 99 05/17/20 13:54 05/17/20 13:54 05/17/20 15:01 05/17/20 15:01 05/17/20 15:01 - Laboratory Result Diagrams: 05/17/20 14:09 05/17/20 14:09 Laboratory results interpreted by me: 05/17/20 14:09 Magnesium 2.4 H - Diagnostic Test Radiology reviewed: Image reviewed, Reports reviewed - EKG Interpretation by Me EKG shows normal: Sinus rhythm Rate: Normal Rhythm: NSR When compared to previous EKG there are: Previous EKG unavailable - No blocks bradycardia or variation Discharge - Discharge Clinical Impression: Palpitations, Encounter for tobacco use cessation counseling Condition: Good Disposition: HOME, SELF-CARE Instructions: Palpitations (Irregular or Rapid Heartrate) ([facility]) Additional Instructions: Please follow-up with [facility]. Their number is attached to this discharge. Please avoid all caffeine as it may be causing premature beats. Referrals: MRA SALGADO PA-C [Primary Care Provider] - Follow up as needed HENRRY MTZ MD [NO LOCAL MD] - Follow up as needed
[2020-05-17 15:20] VITALS: BP 122/74
--- NOTE | 2020-05-18 08:45 | EKG REPORT ---
SEVERITY:- OTHERWISE NORMAL ECG - SINUS RHYTHM RIGHT AXIS DEVIATION : Confirmed by: Jamal Arrington MD 18-May-2020 08:44:32
== END 2020-05-17 15:18 | disposition home or self-care (01) ==
LOC: ER 13:32
DX: R00.2 Palpitations (principal); R07.9 Chest pain, unspecified; R42 Dizziness and giddiness; Z88.2 Allergy status to sulfonamides; Z98.51 Tubal ligation status
CPT/HCPCS: 36415; 71046; 80053; 82550; 83735; 84484; 85025; 93005; 93010; 99285